=== PATIENT | female | born 1930 ===

== ENCOUNTER → 2016-09-04 | Emergency (ER) | payer OTHER ==
--- NOTE | 2016-09-04 20:58 | ED NURSING NOTES ---
Clinical Report - Nurses [facility] [address] [place] [address] 09/04/2016 17:26 [id number] TRI[facility] Triage time 17:35 Sep 04 2016. Acuity: LEVEL 3. Chief Complaint: FEVER and "NOT FEELING WELL" and (Weakness). Alert. KARLOS COMA SCORE: Karlos Coma Scale: 15- eyes open spontaneously (4); best verbal response- oriented x 4 (5); best motor response- obeys commands (6). --18:02 Fausto Domingo R.N. 17:42 09/04/16. BP: 193/67. HR: 107. RR: 44. O2 saturation: 98%. Temp: 102.6 F (temporal). Pain level now: 5/10. Additional comments: Generalized discomfort. --18:02 Fausto Domingo R.N. Weight: 69.8 kg stated. Height/Length: 67 inches Per Patient. BMI: 24.1. --17:50 Fausto Domingo R.N. Medications Aleve. Cynthia. Atenolol Oral 25 mg, daily. Amando Aspirin EC Low Dose Oral (Tablet Delayed Release 81 mg) 1-1/2 tablets, daily. Montelukast Sodium Oral 10 mg, evening. Ranitidine HCl Oral 150 mg, 2x a day. RisperiDONE Oral 1 mg, daily. --17:51 Fausto Domingo R.N. Simvastatin Oral 20 mg, evening. TraZODone HCl Oral 50 mg, at bedtime. --17:51 Fausto Domingo R.N. Allergies Penicillins. --17:51 Fausto Domingo R.N. Medication/allergy information source: the patient's family. --18:02 Fausto Domingo R.N. History Arrived by private vehicle. Historian: patient. Accompanied by daughter. Primary physician (Ruthie Nieto, [facility], [facility]). ( Fever associated with increased Weakness.). This started today. Onset. (about 7 hours ago). 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 PAST MEDICAL HX: Immunizations: up-to-date. SOCIAL HX: Never smoker. History of drug use: marijuana. No alcohol use. No recent travel. No infectious disease exposure. ABUSE ASSESSMENT: No report of abuse. FALL RISK ASSESSMENT: Fall risk assessment completed. No fall risk identified. NUTRITIONAL RISK ASSESSMENT: The nutritional risk assessment revealed no deficiencies. FUNCTIONAL ASSESSMENT: Functional assessment performed: requires assistance with the activities of daily living; speaks no Citizen Of [place]; mobility impairment present- this mobility impairment is a new problem; wears glasses; cognitive impairment- Alzheimer's disease. LEARNING NEEDS ASSESSMENT: The learning needs assessment was deferred due to the patient's condition. SKIN INTEGRITY ASSESSMENT: Skin integrity risk assessment completed. No skin integrity risk identified. --18:02 Fausto Domingo R.N. PROBLEMS: Tuberculosis. UTI - Urinary Tract Infection. Alzheimer's Disease. Arthritis. Hypercholesterolemia. Hypertension. --17:49 Fausto Domingo R.N. Interventions ID and allergy band on patient. To treatment room. --18:02 Fausto Domingo R.N. PHYSICAL ASSESSMENT To room via wheelchair. GENERAL / NEURO / PSYCH: Alert. Appears anxious. Altered mental status. RESPIRATORY: Mild respiratory distress. Breath sounds within normal limits. GI / : ( appetite poor in the last 4 days.). Abdomen soft. SKIN: Skin intact. Skin is warm and dry. Normal skin turgor. --17:56 Fausto Domingo R.N. NURSING PROGRESS NOTES Patient gowned. Reassurance given. Patient identifiers checked. Call light placed in reach. Side rails up x 2. Bed placed in lowest position. Brakes of bed on. Patient ready for evaluation- chart flagged and ED physician notified. --17:57 Fausto Domingo R.N. 17:48 09/04/2016 Site #1 started via IV in the right antecubital space with an 20g angiocath, with aseptic technique and good blood return; one attempt. Blood drawn: rainbow set. Labeled in the presence of the patient and sent to the lab. Saline lock flushed with 10 mL saline (start by CECILIO Rios). --17:58 Fausto Domingo R.N. 18:13 09/04/2016 Started bag #1 1000 mL IV Fluids IV NS (Saline); at 1000 mL/hr over 1 hour(s) via site #1 --18:13 Halima Ochoa R.N. 18:13 09/04/16. BP: 179/111. HR: 107. RR: 12. O2 saturation: 96%. --18:14 Halima Ochoa R.N. ( daughter at bedside). --18:14 Halima Ochoa R.N. 18:20 09/04/2016 Ibuprofen PO 600 mg given. Allergies verified and confirmed 5 rights. --18:20 Halima Ochoa R.N. 19:17 09/04/16. BP: 163/73. HR: 88. RR: 17. O2 saturation: 96%. Temp: 98.9 F (axillary). --19:20 Halima Ochoa R.N. 19:26 09/04/2016 Ibuprofen PO Response: symptoms have improved. --20:26 Halima Ochoa R.N. 22:00 09/04/2016 Site #1 removed upon discharge. Bandage applied. --22:15 Halima Ochoa R.N. 22:00 09/04/2016 IV Fluids IV NS Discontinued: bag #1. Total amount infused: 500 mL. IV patency established. IV site checked: no pain, redness, or swelling. IV flushed thoroughly. --22:17 Halima Ochoa R.N. DISPOSITION / DISCHARGE Departure time: 22:Sep 04 2016. Condition at departure: improved. Ability to learn limited by language barrier. Discharge instructions provided and reviewed with the family. Reviewed medication(s) side effects, precautions, dosing and course information. Prescription(s) given to the senior electrical controls engineer. Reviewed referral to a primary care physician. Family verbalized understanding. Written instructions provided in Citizen Of [place]. The patient was discharged home and accompanied by family. She left the Emergency Department in a wheelchair and via private vehicle. Family member driving. FALL RISK ASSESSMENT: Fall risk assessment completed. No fall risk identified. --22:06 Halima Ochoa R.N. 00:05 09/04/16. BP: 121/51. HR: 73. RR: 20. O2 saturation: 94%. --22:06 Halima Ochoa R.N. Locked/Released at 09/04/2016 22:18 by Halima Ochoa R.N.
--- NOTE | 2016-09-04 20:58 | ED ORDER SUMMARY ---
..... Patient: ILIANA CASTELLON OrderSheet [facility] VisitID: [id number] [place] [address] 86y, F Registration Date/Time: 09/04/2016 ORDER SHEET Weight: 69.8 kg (stated) Allergies: Penicillins GENERAL ORDERS: CBC w Diff Urgent (17:53 09/04/2016 HBivens A.R.N.P.) (Ack 17:57 LNations ER Tech1) (17:58 JRomanelli R.N.) CMP Urgent (17:53 09/04/2016 HBivens A.R.N.P.) (Ack 17:57 LNations ER Tech1) (17:58 JRomanelli R.N.) UA-Culture if indicated Urgent (17:53 09/04/2016 HBivens A.R.N.P.) (Ack 17:57 LNations ER Tech1) (18:06 KKnebel R.N.) Rapid Influenza Screen (Nasal Pharyngeal) (nare) Urgent (18:31 09/04/2016 HBivens A.R.N.P.) (Ack 18:33 KHoerner) (20:21 KKnebel R.N.) (Sent 20:23 IJurca ER Tech1) Chest 2V Urgent (18:31 09/04/2016 HBivens A.R.N.P.) (Ack 18:33 KHoerner) (18:47 MCampbell) MEDICATION ORDERS: Ibuprofen PO 600 mg (NOW) (18:16 09/04/2016 KKnebel R.N. per protocol) (18:20 KKnebel R.N.) IV FLUIDS: IV Saline Lock (17:53 09/04/2016 HBivens A.R.N.P.) (17:58 JRomanelli R.N.) IV NS : initial bolus 1000 mL (1000 mL/hr), then none - (NOW) (18:00 09/04/2016 HBivens A.R.N.P.) (18:13 KKnebel R.N.) ORDER SHEET NOTES: [Electronically signed by Halima Ochoa R.N. (22:18 09/04/2016)] [Electronically signed by Lindsey James (22:40 09/04/2016)] [Electronically locked/signed by Halima Ochoa R.N. (:18 09/04/2016)]
--- NOTE | 2016-09-04 20:58 | ED CLINICAL REPORT ---
Clinical Report - Physicians/Mid Levels [facility] [address] [place] [address] 09/04/2016 17:26 Patient: ILIANA CASTELLON Time Seen: 17:42; upon arrival, initial patient contact, initial documentation, patient care assumed. Arrived- By private vehicle. Historian- patient. HISTORY OF PRESENT ILLNESS Chief Complaint: leaky urine. This started today and still present. Modifying factors. Not worsened by anything. Not relieved by anything. No abdominal pain, pelvic pain, vaginal pain, low back pain or pain with urination. No hematuria. Similar symptoms previously: Frequently, as bad. Recent medical care: The patient was seen recently at this facility in a clinic. 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 REVIEW OF SYSTEMS No vomiting or diarrhea. She has had a subjective fever. She has had new onset of generalized weakness. All systems otherwise negative, except as recorded above. PAST HISTORY See nurses notes. ( PROBLEMS: Tuberculosis. UTI - Urinary Tract Infection. Alzheimer's Disease. Arthritis. Hypercholesterolemia. Hypertension. --17:49 Fausto Domingo R.N.). SOCIAL HISTORY Never smoker. No alcohol use or drug use. No recent travel. Is a local resident. She lives with a family member. FAMILY HISTORY Negative. ADDITIONAL NOTES The nursing notes have been reviewed with agreement regarding the chief complaint, HPI, ROS, PMH and patient medications and allergies. PHYSICAL EXAM Vital Signs: 09/04/2016 17:42 BP: 193/67. HR: 107. RR: 44. O2 saturation: 98%. Temp: 102.6 F. Pain level now: 5/10. Have been reviewed as abnormal and appear to be correct. Hypertensive. Tachycardic. Respiratory rate normal. Febrile. Oxygen saturation normal. Appearance: Alert. Oriented X3. No acute distress. HEENT: Normal external inspection. ENT: Pharynx normal. Neck: Neck supple. CVS: Heart sounds normal. Respiratory: No respiratory distress. Breath sounds normal. Chest nontender. Abdomen: Soft and nontender. Bowel sounds normal. No organomegaly. No mass. Back: Normal external inspection. Skin: Skin warm and dry. Normal skin color. No rash. Normal skin turgor. Extremities: Extremities nontender. No lower extremity edema. Neuro: Disoriented. Altered mental status. Eyes open spontaneously. Best motor response: obeys commands. (pt not talking). Mood/affect normal. No motor deficit. No sensory deficit. LABS, X-RAYS, AND EKG Laboratory Tests: UA-Culture if indicated: (HENRI: 09/04/2016 17:00) ( [facility] 09/04/2016 18:27) Final results Test Result Flag Units (Reference) URINE COLOR YELLOW URINE APPEARANCE CLEAR URINE GLUCOSE NEGATIVE (NEGATIVE) URINE BILIRUBIN NEGATIVE (NEGATIVE) URINE KETONE NEGATIVE (NEGATIVE) URINE SPECIFIC GRAVITY <= 1.005 L (1.010-1.030) URINE PH 5.5 (5.0-8.0) URINE PROTEIN NEGATIVE (NEGATIVE) URINE UROBILINOGEN 0.2 EU/dL (0.2-1.0) URINE NITRITE POSITIVE (NEGATIVE) URINE BLOOD TRACE-LYSED (NEGATIVE) URINE LEUK ESTERASE NEGATIVE (NEGATIVE) URINE RBC 1-3 rbc/hpf (0-1) URINE WBC 1-3 wbc/hpf (0-1) URINE EPITHELIAL CELLS 3-5 EPI/hpf (0-5) URINE BACTERIA MODERATE (2+ TO 3+) (NONE SEEN) URINE COMMENT CULTURE INDICATED URINE CULTURES ARE SET-UP BASED ON THE FOLLOWING CRITERIA:POSITIVE NITRITEPOSITIVE LEUKOCYTE ESTERASEGREATER THAN 10 WHITE BLOOD CELLSMODERATE (2+) OR GREATER BACTERIA CBC w Diff: (HENRI: 09/04/2016 18:00) ( [facility] 09/04/2016 18:18) Final results Test Result Flag Units (Reference) WHITE BLOOD COUNT 11.3 K/uL (4.5-11.5) RED BLOOD COUNT 4.46 M/uL (4.00-5.20) HEMOGLOBIN 12.1 gm/dL (12.0-16.0) HEMATOCRIT 37.6 % (36.0-46.0) MEAN CELL VOLUME 84 fL (80-100) MEAN CORPUSCULAR HGB 27 pg (26-34) MEAN CORPUSCULAR HGB CONC 32 g/dL (31-37) RED CELL DISTRIBUTION WIDTH 14.1 % (11.6-14.8) PLATELET COUNT 142 L K/uL (150-400) NEUTROPHIL % 67.4 % (50-75) LYMPH % 17.6 L % (25-40) MONO % 14.6 H % (3-14) EOSINOPHIL % 0.1 % (0-4) BASOPHIL % 0.3 % (0-2) CMP: (HENRI: 09/04/2016 18:00) ( MsgRcvd 09/04/2016 18:38) Final results Test Result Flag Units (Reference) GLUCOSE 119 H mg/dL (70-110) BUN 20 H mg/dL (7-18) CREATININE 0.9 mg/dL (0.6-1.3) Estimated GFR >60 mL/min Estimated GFR- >60 mL/min Note: Persistent reduction over 3 months in eGFR<60 mL/min/1.73 m2 defines CKD. Patients with eGFR values>=60 mL/min/1.73 m2 may also have CKD if evidence ofpersistent proteinuria. Additional information may be foundat www.kidney.org. SODIUM 141 mmol/L (136-145) POTASSIUM 3.4 L mmol/L (3.5-5.1) CHLORIDE 104 mmol/L (98-107) CARBON DIOXIDE 26 mmol/L (21-32) CALCIUM 8.5 mg/dL (8.5-10.1) TOTAL PROTEIN 7.0 g/dL (6.4-8.2) ALBUMIN 3.2 L g/dL (3.3-5.0) BILIRUBIN, TOTAL 0.5 mg/dL (0.0-1.0) ALKALINE PHOSPHATASE 126 H U/L (46-116) AST (SGOT) 19 U/L (15-37) ALT (SGPT) 20 U/L (12-78) Rapid Influenza Screen: (HENRI: 09/04/2016 20:20) ( [facility] 09/04/2016 20:53) Final results SPECIMEN DESCRIPTION: NARE Test Result Flag Units (Reference) RAPID INFLUENZA SCREEN DATE: 09/04/16 INFLUENZA A: NEGATIVE SCREEN FOR INFLUENZA A INFLUENZA B: NEGATIVE SCREEN FOR INFLUENZA B RAPID INFLUENZA SCREEN NEGATIVE FOR "A" "B". . PROGRESS AND PROCEDURES Course of Care: 1825. daughter updated with current lab results and need for flu screen, chest xray and more testing. Relative counseled via phone regarding the patient's stable condition, test results and diagnosis. 20:57. Differential Diagnosis: Other possible considerations: uti,viral illness, flu, pneumonia, anemia, urosepsis, pyelo. Above considerations are based on history, physical exam and laboratory data. Differential diagnosis was discussed with patient's family. Disposition: Discharged home in good and improved condition (20:57). Condition: good and stable. CLINICAL IMPRESSION Acute urinary tract infection with cystitis. No pyelonephritis or hematuria. Not associated with indwelling catheter or obstruction. Acute fever INSTRUCTIONS Alternate Tylenol (Acetaminophen) and Motrin (Ibuprofen) for temperature greater than 101 degrees orally. Take according to label instructions. Drink plenty of fluids. Warnings: GENERAL WARNINGS: Return or contact your physician immediately if your condition worsens or changes unexpectedly, if not improving as expected, or if other problems arise. Specifically return if problem worsens. Prescription Medications: Levaquin 500 mg: take 1 tab orally every day for 7 days. No refills. Follow-up: Follow up with your doctor in about three days even if well. Call for an appointment. Summary of care provided to family. Understanding of the discharge instructions verbalized by patient. (Electronically signed by Lindsey James A.R.N.P. 09/04/2016 22:40)
--- NOTE | 2016-09-04 20:58 | ED ORDER SUMMARY ---
..... Patient: ILIANA CASTELLON OrderSheet [facility] VisitID: [id number] [place] [address] 86y, F Registration Date/Time: 09/04/2016 ORDER SHEET Weight: 69.8 kg (stated) Allergies: Penicillins GENERAL ORDERS: CBC w Diff Urgent (17:53 09/04/2016 HBivens A.R.N.P.) (Ack 17:57 LNations ER Tech1) (17:58 JRomanelli R.N.) CMP Urgent (17:53 09/04/2016 HBivens A.R.N.P.) (Ack 17:57 LNations ER Tech1) (17:58 JRomanelli R.N.) UA-Culture if indicated Urgent (17:53 09/04/2016 HBivens A.R.N.P.) (Ack 17:57 LNations ER Tech1) (18:06 KKnebel R.N.) Rapid Influenza Screen (Nasal Pharyngeal) (nare) Urgent (18:31 09/04/2016 HBivens A.R.N.P.) (Ack 18:33 KHoerner) (20:21 KKnebel R.N.) (Sent 20:23 IJurca ER Tech1) Chest 2V Urgent (18:31 09/04/2016 HBivens A.R.N.P.) (Ack 18:33 KHoerner) (18:47 MCampbell) MEDICATION ORDERS: Ibuprofen PO 600 mg (NOW) (18:16 09/04/2016 KKnebel R.N. per protocol) (18:20 KKnebel R.N.) IV FLUIDS: IV Saline Lock (17:53 09/04/2016 HBivens A.R.N.P.) (17:58 JRomanelli R.N.) IV NS : initial bolus 1000 mL (1000 mL/hr), then none - (NOW) (18:00 09/04/2016 HBivens A.R.N.P.) (18:13 KKnebel R.N.) ORDER SHEET NOTES: [Electronically signed by Halima Ochoa R.N. (22:18 09/04/2016)] [Electronically signed by Lindsey James (22:40 09/04/2016)] [Electronically locked/signed by Halima Ochoa R.N. (:18 09/04/2016)]
--- NOTE | 2016-09-04 20:58 | ED NURSING NOTES ---
Clinical Report - Nurses [facility] [address] [place] [address] 09/04/2016 17:26 [id number] Triage time 17:35 Sep 04 2016. Acuity: LEVEL 3. Chief Complaint: FEVER and "NOT FEELING WELL" and (Weakness). Alert. KARLOS COMA SCORE: Karlos Coma Scale: 15- eyes open spontaneously (4); best verbal response- oriented x 4 (5); best motor response- obeys commands (6). --18:02 Fausto Domingo R.N. 17:42 09/04/16. BP: 193/67. HR: 107. RR: 44. O2 saturation: 98%. Temp: 102.6 F (temporal). Pain level now: 5/10. Additional comments: Generalized discomfort. --18:02 Fausto Domingo R.N. Weight: 69.8 kg stated. Height/Length: 67 inches Per Patient. BMI: 24.1. --17:50 Fausto Domingo R.N. Medications Aleve. Cynthia. Atenolol Oral 25 mg, daily. Amando Aspirin EC Low Dose Oral (Tablet Delayed Release 81 mg) 1-1/2 tablets, daily. Montelukast Sodium Oral 10 mg, evening. Ranitidine HCl Oral 150 mg, 2x a day. RisperiDONE Oral 1 mg, daily. --17:51 Fausto Domingo R.N. Simvastatin Oral 20 mg, evening. TraZODone HCl Oral 50 mg, at bedtime. --17:51 Fausto Domingo R.N. Allergies Penicillins. --17:51 Fausto Domingo R.N. Medication/allergy information source: the patient's family. --18:02 Fausto Domingo R.N. History Arrived by private vehicle. Historian: patient. Accompanied by daughter. Primary physician (Ruthie Nieto, [facility], [facility]). ( Fever associated with increased Weakness.). This started today. Onset. (about 7 hours ago). 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 PAST MEDICAL HX: Immunizations: up-to-date. SOCIAL HX: Never smoker. History of drug use: marijuana. No alcohol use. No recent travel. No infectious disease exposure. ABUSE ASSESSMENT: No report of abuse. FALL RISK ASSESSMENT: Fall risk assessment completed. No fall risk identified. NUTRITIONAL RISK ASSESSMENT: The nutritional risk assessment revealed no deficiencies. FUNCTIONAL ASSESSMENT: Functional assessment performed: requires assistance with the activities of daily living; speaks no [place]ese; mobility impairment present- this mobility impairment is a new problem; wears glasses; cognitive impairment- Alzheimer's disease. LEARNING NEEDS ASSESSMENT: The learning needs assessment was deferred due to the patient's condition. SKIN INTEGRITY ASSESSMENT: Skin integrity risk assessment completed. No skin integrity risk identified. --18:02 Fasuto Domingo R.N. PROBLEMS: Tuberculosis. UTI - Urinary Tract Infection. Alzheimer's Disease. Arthritis. Hypercholesterolemia. Hypertension. --17:49 Fausto Domingo R.N. Interventions ID and allergy band on patient. To treatment room. --18:02 Fausto Domingo R.N. PHYSICAL ASSESSMENT To room via wheelchair. GENERAL / NEURO / PSYCH: Alert. Appears anxious. Altered mental status. RESPIRATORY: Mild respiratory distress. Breath sounds within normal limits. GI / : ( appetite poor in the last 4 days.). Abdomen soft. SKIN: Skin intact. Skin is warm and dry. Normal skin turgor. --17:56 Fausto Domingo R.N. NURSING PROGRESS NOTES Patient gowned. Reassurance given. Patient identifiers checked. Call light placed in reach. Side rails up x 2. Bed placed in lowest position. Brakes of bed on. Patient ready for evaluation- chart flagged and ED physician notified. --17:57 Fausto Domingo R.N. 17:48 09/04/2016 Site #1 started via IV in the right antecubital space with an 20g angiocath, with aseptic technique and good blood return; one attempt. Blood drawn: rainbow set. Labeled in the presence of the patient and sent to the lab. Saline lock flushed with 10 mL saline (start by CECILIO Rios). --17:58 Fausto Domingo R.N. 18:13 09/04/2016 Started bag #1 1000 mL IV Fluids IV NS (Saline); at 1000 mL/hr over 1 hour(s) via site #1 --18:13 Halima Ochoa R.N. 18:13 09/04/16. BP: 179/111. HR: 107. RR: 12. O2 saturation: 96%. --18:14 Halima Ochoa R.N. ( daughter at bedside). --18:14 Halima Ochoa R.N. 18:20 09/04/2016 Ibuprofen PO 600 mg given. Allergies verified and confirmed 5 rights. --18:20 Halima Ochoa R.N. 19:17 09/04/16. BP: 163/73. HR: 88. RR: 17. O2 saturation: 96%. Temp: 98.9 F (axillary). --19:20 Halima Ochoa R.N. 19:26 09/04/2016 Ibuprofen PO Response: symptoms have improved. --20:26 Halima Ochoa R.N. 22:00 09/04/2016 Site #1 removed upon discharge. Bandage applied. --22:15 Halima Ochoa R.N. 22:00 09/04/2016 IV Fluids IV NS Discontinued: bag #1. Total amount infused: 500 mL. IV patency established. IV site checked: no pain, redness, or swelling. IV flushed thoroughly. --22:17 Halima Ochoa R.N. DISPOSITION / DISCHARGE Departure time: 22:Sep 04 2016. Condition at departure: improved. Ability to learn limited by language barrier. Discharge instructions provided and reviewed with the family. Reviewed medication(s) side effects, precautions, dosing and course information. Prescription(s) given to the truck leasing manager. Reviewed referral to a primary care physician. Family verbalized understanding. Written instructions provided in [place]. The patient was discharged home and accompanied by family. She left the Emergency Department in a wheelchair and via private vehicle. Family member driving. FALL RISK ASSESSMENT: Fall risk assessment completed. No fall risk identified. --22:06 Halima Ochoa R.N. 00:05 09/04/16. BP: 121/51. HR: 73. RR: 20. O2 saturation: 94%. --22:06 Halima Ochoa R.N. Locked/Released at 09/04/2016 22:18 by Halima Ochoa R.N.
--- NOTE | 2016-09-04 22:23 | DIAGNOSTIC IMAGING REPORT ---
PROCEDURE: XR CHEST 2 VIEW INDICATION: FEVER TECHNIQUE: Two views. COMPARISON: 05/27/2014 FINDINGS: Mildly enlarged heart. Ectatic and tortuous thoracic aorta. No central venous congestion. Diffusely coarse interstitial markings with reticular pattern. Biapical pleural plaquing. No dense consolidation, pleural effusion, or pneumothorax. Degeneration in both humeral heads. IMPRESSION: 1. No acute process. 2. Reticular interstitial thickening may reflect progressive mild senescent/fibrotic changes or, less likely, diffuse atypical interstitial/viral infection. 3. No dense pneumonia.
--- NOTE | 2016-09-04 22:41 | ED DISCHARGE INSTRUCTIONS ---
Patient: ILIANA CASTELLON General Instructions [facility] VisitID: [id number] [place] [address] 86y, F Registration Date/Time: 09/04/2016 Acute urinary tract infection with cystitis. No pyelonephritis or hematuria. Not associated with indwelling catheter or obstruction. Acute fever INSTRUCTIONS Alternate Tylenol (Acetaminophen) and Motrin (Ibuprofen) for temperature greater than 101 degrees orally. Take according to label instructions. Drink plenty of fluids. Warnings: GENERAL WARNINGS: Return or contact your physician immediately if your condition worsens or changes unexpectedly, if not improving as expected, or if other problems arise. Specifically return if problem worsens. Prescription Medications: Levaquin 500 mg: take 1 tab orally every day for 7 days. No refills. Follow-up: Follow up with your doctor in about three days even if well. Call for an appointment. Summary of care provided to family. Understanding of the discharge instructions verbalized by patient. ADDITIONAL INFORMATION Bladder Infection,Female (Adult) A bladder infection ("cystitis" or "UTI") usually causes a constant urge to urinate and a burning when passing urine. Urine may be cloudy, smelly or dark. There may be pain in the lower abdomen. A bladder infection occurs when bacteria from the vaginal area enter the bladder opening (urethra). This can occur from sexual intercourse, wearing tight clothing, dehydration and other factors. Home Care: Drink lots of fluids (at least 6-8 glasses a day, unless you must restrict fluids for other medical reasons). This will force the medicine into your urinary system and flush the bacteria out of your body. Avoid sexual intercourse until your symptoms are gone. Avoid caffeine, alcohol and spicy foods. These can irritate the bladder. A bladder infection is treated with antibiotics. You may also be given Pyridium (generic = phenazopyridine) to reduce the burning sensation. This medicine will cause your urine to become a bright orange color. The orange urine may stain clothing. You may wear a pad or panty-liner to protect clothing. Preventing Future Infections: Always wipe from front to back after a bowel movement. Keep the genital area clean and dry. Drink plenty of fluids each day to avoid dehydration. Both sexual partners should wash before intercourse. Urinate right after intercourse to flush out the bladder. Wear cotton underwear and cotton-lined panty hose; avoid tight-fitting pants. If you are on control pills and are having frequent bladder infections, discuss with your doctor. Follow Up: Return to this facility or see your doctor if ALL symptoms are not gone after three days of treatment. Get Prompt Medical Attention if any of the following occur: Fever of 100.4F (38C) or higher, or as directed by your healthcare provider No improvement by the third day of treatment Increasing back or abdominal pain Repeated vomiting; unable to keep medicine down Weakness, dizziness or fainting Vaginal discharge Pain, redness or swelling in the labia (outer vaginal area) Febrile Illness, Uncertain Cause (Adult) You have a fever, but the cause is not certain. A fever is a natural reaction of the body to an illness such as infections due to a virus or bacteria. In most cases, the temperature itself is not harmful. It actually helps the body fight infections. A fever does not need to be treated unless you feel very uncomfortable. Sometimes a fever can be an early sign of a more serious infection. Therefore, you should watch for the signs listed below. Home Care: If signs and symptoms are severe, rest at home for the first 2-3 days. When you resume activity, don't let yourself get too tired. Stay away from cigarette smoke (yours and other peoples). You may use acetaminophen (Tylenol) or ibuprofen (Motrin, Advil) to control fever or pain, unless another medicine was prescribed. NOTE: If you have chronic liver or kidney disease or ever had a stomach ulcer or GI bleeding, talk with your doctor before using these medicines. (Aspirin should never be used in anyone under 18 years of age who is ill with a fever. It may cause severe liver damage.) Your appetite may be poor, so a light diet is fine. Avoid dehydration by drinking 6-8 glasses of fluid per day (water, sport drinks such as Gatorade, sodas without caffeine, juices, tea, soup). Extra fluid will help loosen secretions in the nose and lungs. Anov-vvy-ynhuzge products will not shorten the duration of the illness but may be helpful for the following symptoms: cough (Robitussin DM); sore throat (Chloraseptic lozenges or spray); nasal and sinus congestion (Actifed or Sudafed). NOTE: Do not use decongestants if you have high blood pressure. Follow Up with your doctor or as advised if you do not start to improve over the next week. Get Prompt Medical Attention if any of the following occur: Cough with lots of colored sputum (mucus) or blood in your sputum Chest pain, shortness of breath, wheezing or difficulty breathing Severe headache, face, neck, throat or ear pain Feeling drowsy or confused Abdominal pain, repeated vomiting or diarrhea Joint pain or a new rash Burning when urinating Fever of 100.4F (38C) oral or higher, not better with fever medication Feeling weak or dizzy Convulsion Taking Your Child's Temperature If your child feels hot, then check the temperature. Under 3 months : Start with a AXILLARY temperature. If it is above 99.0 F (37.2 C), take a RECTAL temperature. 3 months to 4 years : Measure a RECTAL temperature, or an EAR temperature. Over 4 years : Measure an ORAL temperature. Rectal Temperature is the most accurate. Ear temperature is not as accurate as a rectal or oral temperature, but is more convenient and can be used in the 3 month to 4 year old. Other methods such as plastic strips , forehead devices , and pacifier thermometers are even less accurate and they are not recommended. If you do not know how to use a thermometer, ask your nurse or pharmacist. Oral Method: Normal: 98.6 F (37.0 C). Range of normal: Up to 99.0 F (37.2 C). Recommended Age: Use this method for children older than 4 or 5 years of age, only if cooperative. 1) Wait at least 20 minutes after drinking or eating before taking an oral temperature. 2) Place the tip of a the thermometer under the child's tongue. 3) Have child close lips gently, without biting on the thermometer. 4) Keep under the tongue until the thermometer beeps. 5) Remove thermometer and read the temperature in the display. 6) Clean the thermometer with alcohol, or soap and water after each use. Axillary Method (UNDER THE ARM): Normal: 97.6 F (36.6 C) Range of Normal: Up to 98.6 F (37.0 C) Recommended Age: Use this method for children under 4 years of age or any uncooperative child. 1) Make sure armpit is dry and the child does not have clothing between arm and chest. 2) Place the tip of the thermometer high up in the armpit. 4) Hold the child's arm snug against their body with the thermometer in place until it beeps. 5) Remove thermometer and read the temperature in the display. 6) Clean the thermometer with alcohol, or soap and water after each use. Rectal Method: Normal: 99.6 F (37.6 C). Range of Normal: Up to 100.4 F (38.0 C). Recommended age: Use this method for children under 4 years of age or any uncooperative child. 1) Lubricate the tip of a rectal thermometer with a lubricant such as Vaseline jelly or K-Y jelly. 2) Lay your child face down across your lap, or on his/her side with knees bent toward the chest. Spread buttocks so that the anus can be easily seen. 3) Hold the thermometer between your thumb and index finger with the edge of your hand resting on the buttocks. Slowly and gently insert thermometer into the anus about one inch. The tip should slide in easily. Do not force it since they may cause injury. 4) Do not let go of the thermometer! Hold it carefully in place until it beeps. 5) Remove thermometer and read the temperature in the display. 6) Clean the thermometer with alcohol, or soap and water after each use. When To Seek Help Call your doctor or return here if you have an younger than 3 months with a temperature of 100.4 F (38.0 C) or an older child with a fever higher than 104.0 F (40.0 C). Fever Control (Adult) A fever is a natural reaction of the body to an illness. In most cases, the temperature itself is not harmful. It actually helps the body fight infections. A fever does not need to be treated unless you feel very uncomfortable. Home Care If you feel warm, check your temperature. If you feel very uncomfortable and your temperature is at or higher than 100.4F (38C) oral, you may take acetaminophen (Tylenol) every 4 to 6 hours. If you cant take or keep down oral medicine, ask your pharmacist for Tylenol suppositories, which you can get without a prescription. If the fever does not respond to acetaminophen within 1 hour, take ibuprofen (Advil or Motrin). If this works, keep taking the ibuprofen every 6 to 8 hours. Note: If you have chronic liver or kidney disease or ever had a stomach ulcer or GI bleeding, talk with your doctor before using these medications. If either medication alone does not keep the fever down, you may alternate the two medicines every 3 to 4 hours, only if your healthcare provider has instructed you to do so. For example, take Motrin then wait 3 hours, take Tylenol then wait 3 hours, take Motrin, and so on. Follow your healthcare providers instructions exactly. Clothing: Keep clothing light because excess body heat is lost through the skin. The fever will go up if you wear extra layers or wrap in blankets. Fluids: Fever causes the body to lose water through evaporation. Drink plenty of fluids such as water, juice, clear sodas, brad cayla, or lemonade. Do not use aspirin in anyone under 18 years of age who is ill with a fever. It can cause severe liver damage. Follow Up with your doctor or as advised by our staff if you do not get better after 48 hours. Get Prompt Medical Attention if any of the following occur: Fever does not get better after taking fever medication Fast or difficult breathing Earache, sinus pain, stiff or painful neck, headache, repeated diarrhea or vomiting You feel unusually irritable, drowsy, or confused A rash appears You feel weak or dizzy, or that you might faint Levofloxacin Oral tablet What is this medicine? LEVOFLOXACIN (jairo morgan) is a quinolone antibiotic. It is used to treat certain kinds of bacterial infections. It will not work for colds, flu, or other viral infections. How should I use this medicine? Take this medicine by mouth with a full glass of water. Follow the directions on the prescription label. This medicine can be taken with or without food. Take your medicine at regular intervals. Do not take your medicine more often than directed. Do not skip doses or stop your medicine early even if you feel better. Do not stop taking except on your doctor's advice. A special MedGuide will be given to you by the pharmacist with each prescription and refill. Be sure to read this information carefully each time. Talk to your retail sales lead regarding the use of this medicine in children. While this drug may be prescribed for children as young as 6 months for selected conditions, precautions do apply. What side effects may I notice from receiving this medicine? Side effects that you should report to your doctor or health direct care worker as soon as possible: -allergic reactions like skin rash or hives, swelling of the face, lips, or tongue -changes in vision -confusion, nightmares or hallucinations -difficulty breathing -irregular heartbeat, chest pain -joint, muscle or tendon pain -pain or difficulty passing urine -persistent headache with or without blurred vision -redness, blistering, peeling or loosening of the skin, including inside the mouth -seizures -unusual pain, numbness, tingling, or weakness -vaginal irritation, discharge Side effects that usually do not require medical attention (report to your doctor or health direct care worker if they continue or are bothersome): -diarrhea -dry mouth -headache -stomach upset, nausea -trouble sleeping What may interact with this medicine? Do not take this medicine with any of the following medications: - arsenic trioxide - chloroquine - droperidol - medicines for irregular heart rhythm like amiodarone, disopyramide, dofetilide, flecainide, quinidine, procainamide, sotalol - some medicines for depression or mental problems like phenothiazines, pimozide, and ziprasidone This medicine may also interact with the following medications: - amoxapine -antacids - cisapride - dairy products - didanosine (ddI) buffered tablets or powder - haloperidol - multivitamins -NSAIDS, medicines for pain and inflammation, like ibuprofen or naproxen - retinoid products like tretinoin or isotretinoin - risperidone - some other antibiotics like clarithromycin or erythromycin - sucralfate - theophylline - warfarin What if I miss a dose? If you miss a dose, take it as soon as you remember. If it is almost time for your next dose, take only that dose. Do not take double or extra doses. Where should I keep my medicine? Keep out of the reach of children. Store at room temperature between 15 and 30 degrees C (59 and 86 degrees F). Keep in a tightly closed container. Throw away any unused medicine after the expiration date. What should I tell my health care provider before I take this medicine? They need to know if you have any of these conditions: cerebral disease irregular heartbeat kidney disease seizure disorder an unusual or allergic reaction to levofloxacin, other antibiotics or medicines, foods, dyes, or preservatives or trying to get breast-feeding What should I watch for while using this medicine? Tell your doctor or health direct care worker if your symptoms do not improve or if they get worse. Drink several glasses of water a day and cut down on drinks that contain caffeine. You must not get dehydrated while taking this medicine. You may get drowsy or dizzy. Do not drive, use machinery, or do anything that needs mental alertness until you know how this medicine affects you. Do not sit or stand up quickly, especially if you are an older patient. This reduces the risk of dizzy or fainting spells. This medicine can make you more sensitive to the sun. Keep out of the sun. If you cannot avoid being in the sun, wear protective clothing and use a sunscreen. Do not use sun lamps or tanning beds/booths. Contact your doctor if you get a sunburn. If you are a diabetic monitor your blood glucose carefully. If you get an unusual reading stop taking this medicine and call your doctor right away. Do not treat diarrhea with tjzo-vyu-zkoxbax products. Contact your doctor if you have diarrhea that lasts more than 2 days or if the diarrhea is severe and watery. Avoid antacids, calcium, iron, and zinc products for 2 hours before and 2 hours after taking a dose of this medicine. You have been given the following additional information: Bladder Infection, Female (Adult) Febrile Illness, Uncertain Cause (Adult) Thermometer Use Fever Control (Adult) Levofloxacin Oral tablet (Electronically signed by Lindsey James A.R.N.P. 09/04/2016 22:40)
--- NOTE | 2016-09-04 22:41 | ED MED RECONCILIATION SUMMARY ---
Patient: ILIANA CASTELLON Medication Reconciliation Report [facility] VisitID: [id number] [address] [place] [address] 86y, F Registration Date/Time: 09/04/2016 Weight: 69.8 kg Height/Length: 67 in. BMI: 24.1 ALLERGIES: Penicillins The patient's Home Medications are listed below: THE FOLLOWING MEDICATIONS NEED TO BE RECONCILED: Aleve Cynthia Atenolol Oral 25 mg, daily Amando Aspirin EC Low Dose Oral (81 mg) 1-1/2 tablets, daily Montelukast Sodium Oral 10 mg, evening Ranitidine HCl Oral 150 mg, 2x a day RisperiDONE Oral 1 mg, daily Simvastatin Oral 20 mg, evening TraZODone HCl Oral 50 mg, at bedtime The source(s) of the original Home Medication information: patient's family member The following Medications were given to the patient in the Emergency Department: IV NS IV Fluids bolus 0, then 1000 mL/hr, administered: 09/04/2016 6:13:00 PM Ibuprofen [PO] PO 600 mg, administered: 09/04/2016 6:20:00 PM The following Medications were prescribed to the patient: Levaquin 500 mg: take 1 tab orally every day for 7 days. No refills. -- Lindsey James A.R.N.P.
--- NOTE | 2016-09-04 22:41 | ED MAR SUMMARY ---
..... Medication Administration Record [facility] [address] [place] [address] Patient: ILIANA CASTELLON Visit ID: [id number] 86y, F Weight: 69.8 kg Height/Length: 67 in BMI: 24.1 ALLERGIES: Penicillins Start 18:13 09/04/2016 Halima Ochoa R.N., Stop 22:00 09/04/2016 Halima Ochoa R.N. Medication Administered: IV NS (SALINE), Dose: IV Fluids over 1 hour(s), Rate: 1000 mL/hr, Dispensed: 1000 mL bag, Site: #1 right AC. Medication Ordered: IV NS : initial bolus 1000 mL (1000 mL/hr), then none - (NOW). Given 18:20 09/04/2016 Halima Ochoa R.N. Medication Administered: IBUPROFEN [PO], Dose: 600 mg PO. Medication Ordered: Ibuprofen PO 600 mg (NOW).
--- NOTE | 2016-09-04 22:41 | ED MED RECONCILIATION SUMMARY ---
Patient: ILIANA CASTELLON Medication Reconciliation Report [facility] VisitID: [id number] [address] [place] [address] 86y, F Registration Date/Time: 09/04/2016 Weight: 69.8 kg Height/Length: 67 in. BMI: 24.1 ALLERGIES: Penicillins The patient's Home Medications are listed below: THE FOLLOWING MEDICATIONS NEED TO BE RECONCILED: Aleve Cynthia Atenolol Oral 25 mg, daily Amando Aspirin EC Low Dose Oral (81 mg) 1-1/2 tablets, daily Montelukast Sodium Oral 10 mg, evening Ranitidine HCl Oral 150 mg, 2x a day RisperiDONE Oral 1 mg, daily Simvastatin Oral 20 mg, evening TraZODone HCl Oral 50 mg, at bedtime The source(s) of the original Home Medication information: patient's family member The following Medications were given to the patient in the Emergency Department: IV NS IV Fluids bolus 0, then 1000 mL/hr, administered: 09/04/2016 6:13:00 PM Ibuprofen [PO] PO 600 mg, administered: 09/04/2016 6:20:00 PM The following Medications were prescribed to the patient: Levaquin 500 mg: take 1 tab orally every day for 7 days. No refills. -- Lindsey James A.R.N.P.
--- NOTE | 2016-09-04 22:41 | ED MAR SUMMARY ---
..... Medication Administration Record [facility] [address] [place] [address] Patient: ILIANA CASTELLON Visit ID: [id number] 86y, F Weight: 69.8 kg Height/Length: 67 in BMI: 24.1 ALLERGIES: Penicillins Start 18:13 09/04/2016 Halima Ochoa R.N., Stop 22:00 09/04/2016 Halima Ochoa R.N. Medication Administered: IV NS (SALINE), Dose: IV Fluids over 1 hour(s), Rate: 1000 mL/hr, Dispensed: 1000 mL bag, Site: #1 right AC. Medication Ordered: IV NS : initial bolus 1000 mL (1000 mL/hr), then none - (NOW). Given 18:20 09/04/2016 Halima Ochoa R.N. Medication Administered: IBUPROFEN [PO], Dose: 600 mg PO. Medication Ordered: Ibuprofen PO 600 mg (NOW).
== END ==
LOC: ED SRH 17:26
DX: N30.90 Cystitis, unspecified without hematuria (principal); R50.9 Fever, unspecified; I10 Essential (primary) hypertension; E78.00 Pure hypercholesterolemia, unspecified; Z79.899 Other long term (current) drug therapy; Z88.0 Allergy status to penicillin; Z79.1 Long term (current) use of non-steroidal anti-inflammatories (NSAID)
CPT/HCPCS: 90004; 90100; 90148; 90469; 91400; 95059